=== PATIENT | female | born 1950 | race Caucasian/White ===

== ENCOUNTER 2020-03-27 11:40 | Outpatient (CLI) | payer MEDICARE ==
--- NOTE | 2020-03-27 13:01 | MMO ---
Bilateral MAMMO Bilat Screen [facility]. CLINICAL HISTORY: Patient is 69 years old and is seen for screening. The patient has no family history of breast cancer. The patient has no personal history of cancer. VIEWS: The views performed were: bilateral craniocaudal with tomosynthesis and bilateral mediolateral oblique with tomosynthesis. FILMS COMPARED: The present examination has been compared to prior imaging studies performed at [facility] on 11/12/2010, 02/13/2012, 02/16/2013 and 03/28/2014. This study has been interpreted with the assistance of computer-aided detection. MAMMOGRAM FINDINGS: The breasts are heterogeneously dense, which could obscure a lesion on mammography. There are no suspicious masses, suspicious calcifications, or new areas of architectural distortion. IMPRESSION: THERE IS NO MAMMOGRAPHIC EVIDENCE OF MALIGNANCY. A ROUTINE FOLLOW-UP MAMMOGRAM IN 1 YEAR IS RECOMMENDED. THE RESULTS OF THIS EXAM WERE SENT TO THE PATIENT. ACR BI-RADS Category 1 - Negative MAMMOGRAPHY NOTE: 1. A negative mammogram report should not delay a biopsy if a dominant of clinically suspicious mass is present. 2. Approximately 10% to 15% of breast cancers are not detected by mammography. 3. Adenosis and dense breasts may obscure an underlying neoplasm. Reported by: JAMAICA CHEUNG MD Electonically Signed: [id number]
== END 2020-03-27 11:41 | disposition home or self-care (01) ==
LOC: BICMAMMO 11:40
PROVIDERS: ATTEND Family Medicine
DX: Z12.31 Encounter for screening mammogram for malignant neoplasm of breast (principal)
CPT/HCPCS: 77063; 77067

== ENCOUNTER 2020-06-07 06:50 | Outpatient (CLI) | payer MEDICARE ==
[2020-06-07 15:50] LABS: #Eosinphils 0.2 10x3/uL (0.0-0.5); #Monocytes 0.5 10x3/uL (0.0-1.1); %Basophils 0.5 % (0.0-2.0); %Eosinophils 2.9 % (0.0-6.0); %Monocytes 8.5 % (0.0-10.0); Hemoglobin 14.9 g/dL (12.0-16.0); Mean Corpuscular HGB CONC 33.8 G/DL (32.0-36.0); Mean Corpuscular Hemoglobin 32.7 PG (27.0-33.0); Mean Corpuscular Volume 96.7 fl (80.0-100.0); Platelet Count 229 10x3/uL (130-400); RBC Distribution Width 12.8 % (11.5-14.5); Red Blood Cell (RBC) Count 4.56 10x6/uL (3.90-5.20); White Blood Cell (WBC) Count 6.1 10x3/uL (4.5-11.0)
[2020-06-07 15:52] LABS: #Neutrophils 3.4 10x3/uL (1.5-8.4); %Neutrophils 55.1 % (40.0-75.0)
[2020-06-07 16:05] LABS: Anion Gap 14 mmol/L (10-20); BUN (Urea Nitrogen) 16 mg/dL (9.8-20.1); Calc. Creatinine Clearance 0 mL/min (70-130); Calcium 9.7 mg/dL (7.8-10.44); Carbon Dioxide 30 mmol/L (23-31); Chloride 101 mmol/L (98-107); Glucose 90 mg/dL (80-115); Sodium 141 mmol/L (136-145)
[2020-06-07 19:04] LABS: Hemoglobin A1c 5.1 % (4.0-6.0)
[2020-06-08 00:19] LABS: SARS-CoV-2 MS2 Positive; SARS-CoV-2 N Gene Negative; SARS-CoV-2 S Gene Negative; SARS-CoV-2 by NAA Not Detected (NotDetected); SARS-CoV-2 orf1ab Negative
== END 2020-06-07 06:51 | disposition home or self-care (01) ==
LOC: LABBT 06:50
PROVIDERS: ATTEND Surgery
DX: Z01.818 Encounter for other preprocedural examination (principal); K63.89 Other specified diseases of intestine; Z20.828 Contact with and (suspected) exposure to other viral communicable diseases
CPT/HCPCS: 80048; 83036; 85025; U0003; 87635; 93005; 93010

== ENCOUNTER 2020-06-07 15:00 | Inpatient (IN) | payer MEDICARE ==
[2020-06-06 14:27] VITALS: BMI 22.1
[2020-06-13] MEDS ORDERED: Midazolam HCl 2 mg/2 ml Vial ONE ×2 (06:35→06:36)
[2020-06-13] MEDS ORDERED: Fentanyl 100 MCG/2 ML VIAL ONE ×3 (06:35→10:18)
[2020-06-13] MEDS ORDERED: Lidocaine 1% (PF) 30 ML VIAL ONE (06:36)
[2020-06-13] MEDS ORDERED: cefOXitin Sodium/Dextrose 2 GM/50 ML BAG ONE (06:46)
[2020-06-13] MEDS ORDERED: Sodium Chloride 0.9% 0 ML ONE (06:46)
[2020-06-13] MEDS ORDERED: Scopolamine 1.5 mg/72 hour Patch ONE (06:47)
[2020-06-13] MEDS ORDERED: Promethazine HCl 25 MG/ML VIAL IM PRN (09:17)
[2020-06-13] MEDS ORDERED: HYDROmorphone 2 MG/ML VIAL SLOW IVP PRN (09:17)
[2020-06-13] MEDS ORDERED: Promethazine HCl 25 MG/ML VIAL SLOW IVP PRN (09:17)
[2020-06-13] MEDS ORDERED: Ondansetron HCl/PF 4 MG/2 ML Vial IVP PRN (09:17)
[2020-06-13] MEDS ORDERED: Promethazine HCl 25 MG/ML VIAL ONE (10:19)
[2020-06-13] MEDS ORDERED: Rocuronium Bromide 10 MG/ML (10ML VIAL) ONE (10:43)
[2020-06-13] MEDS ORDERED: Lidocaine 1% PF 5 ML VIAL ONE (10:43)
[2020-06-13] MEDS ORDERED: PHENYLEPHRINE-NS 100 MCG/ML 10 ML SYRINGE ONE (10:43)
[2020-06-13] MEDS ORDERED: PROPOFOL 200 MG/20 ML VIAL ONE (10:43)
[2020-06-13] MEDS ORDERED: Dexamethasone 20 MG/5 ML VIAL ONE (10:43)
[2020-06-13] MEDS ORDERED: ePHEDrine 50 MG/ML VIAL ONE (10:43)
[2020-06-13] MEDS ORDERED: Bupivacaine HCl 0.5%/Epinephrine 1:200,000/PF 30 ml Vial ONE (10:43)
[2020-06-13] MEDS ORDERED: Glycopyrrolate 0.2 MG/ML 5 ML SYRINGE ONE ×2 (10:43)
[2020-06-13] MEDS ORDERED: Ondansetron PF 4 MG/2 ML Vial IVP PRN (14:31)
[2020-06-13] MEDS ORDERED: Fentanyl 100 MCG/2 ML VIAL SLOW IVP PRN ×2 (14:31)
[2020-06-13] MEDS: traMADol HCl 50 MG TAB PO PRN ×2 (15:07→21:20)
[2020-06-13] MEDS: cefOXitin Sodium/Dextrose,Iso 1 GM in Premix Bag 1 BAG IVPB SCH (15:11)
[2020-06-13] MEDS: D5 1/2 NS w/20 mEq KCL 1,000 ML IV SCH (17:49)
[2020-06-13] MEDS: Flecainide 50 MG TAB PO SCH (21:19)
[2020-06-13] MEDS: Enoxaparin Sodium 40 MG/0.4 ML SYRINGE SC SCH (21:19)
[2020-06-13] MEDS: Famotidine 20 MG TAB PO SCH (21:20)
[2020-06-13] MEDS: Famotidine/PF 20 mg/2ml Vial SLOW IVP SCH (22:33)
[2020-06-14] MEDS: D5 1/2 NS w/20 mEq KCL 1,000 ML IV SCH ×3 (00:47→17:24)
[2020-06-14] MEDS: cefOXitin Sodium/Dextrose,Iso 1 GM in Premix Bag 1 BAG IVPB SCH (00:47)
[2020-06-14] MEDS: traMADol HCl 50 MG TAB PO PRN ×2 (02:20→10:01)
[2020-06-14 06:10] LABS: #Lymphocytes 1.7 thou/uL (1.20-3.40); #Neutrophils 7.4 thou/uL (1.40-6.50); %Basophils 0.1 % (0.0-1.0); %Eosinophils 0.1 % (0.0-10.0); %Lymphocytes 16.3 % (21.0-51.0); %Monocytes 10.2 % (0.0-10.0); %Neutrophils 73.2 % (42.0-75.0); Hemoglobin 13.2 g/dL (12.0-16.0); Mean Corpuscular HGB CONC 33.2 g/dL (32.0-36.0); Mean Corpuscular Hemoglobin 32.7 pg (27.0-31.0); Mean Corpuscular Volume 98.5 fL (78.0-98.0); Mean Platelet Volume 7.7 fL (7.4-10.4); Platelet Count 202 thou/uL (130-400); Red Blood Cell (RBC) Count 4.02 mill/uL (4.20-5.40); White Blood Cell (WBC) Count 10.1 thou/uL (4.8-10.8)
[2020-06-14 06:30] LABS: Anion Gap 12 mmol/L (10-20); BUN (Urea Nitrogen) 11 mg/dL (9.8-20.1); Calc. Creatinine Clearance 68 mL/min (70-130); Calcium 8.5 mg/dL (7.8-10.44); Carbon Dioxide 27 mmol/L (23-31); Chloride 101 mmol/L (98-107); Glucose 100 mg/dL (80-115); Potassium 3.8 mmol/L (3.5-5.1); Sodium 136 mmol/L (136-145)
--- NOTE | 2020-06-14 07:20 | PDOC.GSPN ---
Surgery Progress Note: Subj - Subjective Patient reports: no new complaints, pain well controlled, tolerating liquids wel l, no bowel movement Narrative: Patient is post op day 1 from R colon resection due to unresectable polyp. She states that she feels well and only experiences pain when she contracts her abdominal muscles. There is moderate pain with deep inspiration. She is beginning to develop some "gas pain", but other than that feels well. Tolerating her liquids well. She denies N/V, lightheadedness, chest pain, shortness of breath, or stomach cramps. Surgery Progress Note: Obj - Vital signs Vital signs: Vital Signs - Most Recent Temp Pulse Resp BP Pulse Ox 98.2 F 58 L 16 159/86 H 92 L 06/14/20 03:10 06/14/20 03:10 06/14/20 03:10 06/14/20 03:10 06/14/20 03:10 - Physical Exam General: no distress, well developed, well nourished Cardiovascular: regular rate and rhythm Respiratory: clear to auscultation, normal respiratory effort, breath sounds present Abdomen: soft, nondistended, positive bowel sounds, appropriately tender Musculoskeletal: normal gait, normal posture Wound: dressing clean,dry,intact, healing well Surgery Progress Note: Results - Labs Result Diagrams: 06/14/20 05:42 06/14/20 05:42 Lab results: Laboratory Results - last 12 hr 06/14/20 06/14/20 05:42 05:42 WBC 10.1 RBC 4.02 L Hgb 13.2 Hct 39.6 MCV 98.5 H MCH 32.7 H MCHC 33.2 RDW 12.0 Plt Count 202 MPV 7.7 Neutrophils % 73.2 Lymphocytes % 16.3 L Monocytes % 10.2 H Eosinophils % 0.1 Basophils % 0.1 Neutrophils # 7.4 H Lymphocytes # 1.7 Monocytes # 1.0 H Eosinophils # 0.0 Basophils # 0.0 Sodium 136 Potassium 3.8 Chloride 101 Carbon Dioxide 27 Anion Gap 12 BUN 11 Creatinine 0.82 Estimated GFR (MDRD) 69 Glucose 100 Calcium 8.5 Surgery Progress Note: A/P - Plan Plan: R colectomy secondary to unresectable polyp Contniue to encourage ambulation. Tolerating clear liquids well, transition to full liquids if she continues to tolerate the clears. Patient has not passed gas, but says that she is beginning to feel gas pressure, so continue to monitor for flatus. If she continues to recover well consider d/c tomorrow morning.
[2020-06-14] MEDS: Flecainide 50 MG TAB PO SCH ×2 (08:14→20:40)
[2020-06-14] MEDS: Lisinopril/Hydrochlorothiazide 20/25 mg Tablet PO SCH (08:14)
[2020-06-14] MEDS: Famotidine 20 MG TAB PO SCH ×2 (08:14→20:40)
[2020-06-14] MEDS: PARoxetine 20 MG TAB PO SCH (08:15)
[2020-06-14] MEDS: Famotidine/PF 20 mg/2ml Vial SLOW IVP SCH ×2 (08:30→20:40)
--- NOTE | 2020-06-14 08:49 | OP ---
DATE OF PROCEDURE: 06/13/2020 PREOPERATIVE DIAGNOSIS: Ascending colon mass. POSTOPERATIVE DIAGNOSIS: Ascending colon mass. PROCEDURE PERFORMED: Laparoscopic right colectomy. ANESTHESIA: General. ESTIMATED BLOOD LOSS: Minimal. COMPLICATIONS: None. FINDINGS: The polyp was in the specimen. DESCRIPTION OF PROCEDURE: The patient was taken to the operating room and laid supine on the table. After general anesthetic was obtained, the abdomen was prepped and draped in a sterile fashion. A Franco had been placed. Left subcostal 5-mm Optiview trocar placed in usual fashion, high-flow pneumoperitoneum was obtained. A 5-mm ports were placed in the left abdomen and suprapubic, 5 mm incision and port was placed at the umbilicus. The right colon was mobilized along the peritoneal reflection. Hepatic flexure was mobilized in the same way. The colon was flipped over to the medial side and the ileocolic vessels were skeletonized at their base. The laparoscopic LigaSure was used to take the ileocolic vessels at their base without bleeding. Right colon was then mobilized posteriorly past the hepatic flexure to the proximal transverse colon. The blue tattooed area was in the cecum. Laparoscopic stapler was fired across the terminal ileum. A reload was fired across the proximal transverse colon. The small bowel and colon were able to be brought up against each other in an isoperistaltic fashion without tension. Subcostal incision was made overlying this area and the Allen wound retractor was placed. An anastomosis was performed using MARQUIS 75 and the common enterotomy was closed using 2-0 Vicryl suture. No ischemia to the staple line or closure. The specimen was taken out from this incision. There was no bleeding in the abdomen. There was no tension on the anastomosis. All instrument counts, needle counts, and lap counts were correct. The 12-mm port site for the stapler in the left subcostal area was closed using GraNee needle Vicryl tie. The subcostal incision was closed with the anterior and posterior fascia using PDS. The wounds were all irrigated and closed using 3-0 Vicryl, 4-0 Monocryl, and Dermabond. The patient was sent to Recovery in stable condition. All instrument counts, needle counts, and lap counts were correct. Job ID: [id number]
[2020-06-14] MEDS ORDERED: HYDROcodone/Acetaminophen 7.5/325 mg Tablet PO PRN (09:23)
[2020-06-14] MEDS: Acetaminophen 325 MG TAB PO PRN ×2 (10:01→17:25)
[2020-06-14] MEDS: hydrALAZINE 20 MG/ML VIAL SLOW IVP PRN ×2 (11:28→20:49)
--- NOTE | 2020-06-14 14:00 | PRG ---
DATE OF SERVICE: 06/14/2020 SUBJECTIVE: Postop day #1, right colectomy, laparoscopic. Ms. Chowdary has no complaints. She tolerated the clear liquids. She has ambulated once in the sanders. OBJECTIVE: VITAL SIGNS: She is afebrile. Vital signs are stable. ABDOMEN: Her abdomen is soft and appropriately tender. The wounds are healing well. LABORATORY DATA: Hemoglobin is stable at 13 postop day #1, creatinine 0.82. ASSESSMENT: Postoperative day #1, right colectomy. PLAN: Advance to full liquids tonight if no nausea. Job ID: [id number]
[2020-06-14] MEDS: Promethazine HCl 25 MG/ML VIAL IM PRN (17:24)
[2020-06-14] MEDS: Enoxaparin Sodium 40 MG/0.4 ML SYRINGE SC SCH (20:40)
[2020-06-15] MEDS: hydrALAZINE 20 MG/ML VIAL SLOW IVP PRN ×2 (01:09→20:21)
[2020-06-15] MEDS: D5 1/2 NS w/20 mEq KCL 1,000 ML IV SCH ×2 (03:53→17:15)
[2020-06-15] MEDS ORDERED: Ketorolac Tromethamine 30 MG/ML VIAL IVP SCH (09:00)
--- NOTE | 2020-06-15 09:16 | PRG ---
DATE OF SERVICE: 06/15/2020 Ms. Chowdary had nausea last night, and she vomited. She feels better this morning. She is complaining of headache. She is afebrile. Vital signs are stable. Her abdomen is soft. It is mildly distended, but she has some bowel sounds. Her wounds are healing well without evidence of infection. ASSESSMENT: Postop day 2, laparoscopic right colectomy. PLAN: I do not think she is ready for discharge yet. She needs to be able to tolerate the liquids better. She is complaining of this headache. We will try Snow, discontinue the fentanyl, also give her a dose of Toradol. Possible discharge home later today. Job ID: [id number]
[2020-06-15] MEDS: Promethazine HCl 25 MG/ML VIAL IM PRN (09:30)
[2020-06-15] MEDS: Lisinopril/Hydrochlorothiazide 20/25 mg Tablet PO SCH (09:31)
[2020-06-15] MEDS: Famotidine 20 MG TAB PO SCH ×2 (09:31→20:19)
[2020-06-15] MEDS: Flecainide 50 MG TAB PO SCH ×2 (09:31→20:19)
[2020-06-15] MEDS: Famotidine/PF 20 mg/2ml Vial SLOW IVP SCH ×2 (09:32→20:20)
[2020-06-15] MEDS: PARoxetine 20 MG TAB PO SCH (09:41)
[2020-06-15] MEDS ORDERED: Ibuprofen 800 MG TAB PO PRN (13:00)
[2020-06-15] MEDS: Enoxaparin Sodium 40 MG/0.4 ML SYRINGE SC SCH (20:20)
[2020-06-15] MEDS: Acetaminophen 325 MG TAB PO PRN (23:24)
[2020-06-16] MEDS: hydrALAZINE 20 MG/ML VIAL SLOW IVP PRN ×2 (00:08→13:14)
[2020-06-16] MEDS: traMADol HCl 50 MG TAB PO PRN (00:56)
[2020-06-16] MEDS: D5 1/2 NS w/20 mEq KCL 1,000 ML IV SCH (00:56)
[2020-06-16] MEDS: PARoxetine 20 MG TAB PO SCH (09:14)
[2020-06-16] MEDS: Lisinopril/Hydrochlorothiazide 20/25 mg Tablet PO SCH (09:15)
[2020-06-16] MEDS: Famotidine 20 MG TAB PO SCH (09:16)
[2020-06-16] MEDS: Flecainide 50 MG TAB PO SCH (09:17)
[2020-06-16] MEDS: Famotidine/PF 20 mg/2ml Vial SLOW IVP SCH (09:18)
[2020-06-16] MEDS: Promethazine HCl 25 MG/ML VIAL IM PRN (09:21)
[2020-06-16 15:56] VITALS: BP 182/82; TEMP 98.2
--- NOTE | 2020-06-20 17:29 | PQF ---
CLINICAL DOCUMENTATION CLARIFICATION FORM: Dear : Tramaine Weiner MD Date / Time: 06/20/2020 Please exercise your independent, professional judgment in responding to the clarification form. Clinical indicators are provided on the bottom of this form for your review Please check appropriate box(s): [ ] Paroxysmal Atrial Fibrillation [ ] Permanent Atrial Fibrillation [ ] Persistent Atrial Fibrillation [ ] Long Standing Persistent Atrial Fibrillation [ ] Chronic Atrial Fibrillation [ ] Atrial Fibrillation/Atrial flutter [ ] Atrial Flutter [ ] Post-Operative Complication - Atrial Fibrillation [ ] Paroxysmal Atrial Fibrillation [ ] Persistent Atrial Fibrillation [ ] Other Diagnosis (Please specify if any) [ X ] Unable to Determine In addition, please specify: Present on Admission (POA): [ ] Yes [ ] No [ ] Unable to Determine Physician Signature: Date/Time: For continuity of documentation, please document condition throughout progress notes and discharge summary. Thank You. To be completed by CDI/Coding staff for physician review: Present Clinical Indicators - Signs / Symptoms / Labs Results and Location in Medical Record [x] Abnormal EKG Miscellanous on 06/13 [x] Paroxysmal atrial fibrillation-she had been doing well, but she had more spells in the last month. Continue flecainide, metoprolol Miscellanous on 06/13 [ ] Palpitations Present Risk Factors Results and Location in Medical Record [x] Hypertensive heart disease Hx of Afib Physicians office H&P on 06/13 [ ] Coronary heart disease [ ] CABG this admission Present Treatments Results and Location in Medical Record [ ] Rate control (anti-arrhythmic drug therapy: beta blockers, calcium channel blockers, Digoxin, Amiodarone) [x] Home medications: Xarelto 20 mg PO Physicians office H&P on 06/13 [x] Metoprolol 12.5mg, flecainide 100mg po Resumed at home on 06/06 CDS/Gastroenterology Physician Signature: AAS Phone #: Date/Time: 06/20/2020 This is a permanent part of the Medical Record [facility]
== END 2020-06-16 17:22 | disposition home or self-care (01) | DRG 331 ==
LOC: SURG A 06-13 06:01 → SURG B 06-13 12:56
PROVIDERS: ADMIT Surgery; ATTEND Surgery
PROC: 0DTF4ZZ Resection of Right Large Intestine, Percutaneous Endoscopic Approach (ICD-10-PCS; principal; 2020-06-13)
PROC: 3E0T3BZ Introduction of Anesthetic Agent into Peripheral Nerves and Plexi, Percutaneous Approach (ICD-10-PCS; 2020-06-13)
DX: D12.6 Benign neoplasm of colon, unspecified (principal); I10 Essential (primary) hypertension; F41.8 Other specified anxiety disorders; E89.0 Postprocedural hypothyroidism; F17.200 Nicotine dependence, unspecified, uncomplicated; Z79.899 Other long term (current) drug therapy; Z79.01 Long term (current) use of anticoagulants; Z90.89 Acquired absence of other organs; Z98.49 Cataract extraction status, unspecified eye; Z88.1 Allergy status to other antibiotic agents; F17.210 Nicotine dependence, cigarettes, uncomplicated; E78.2 Mixed hyperlipidemia; I49.5 Sick sinus syndrome; I48.0 Paroxysmal atrial fibrillation
CPT/HCPCS: 36415; 36416; 80048; 85025; 88309; J0360; J0694; J1100; J1650; J1885; J2001; J2250; J2405; J2550; J2704; J3010; J3480; J3490

== ENCOUNTER 2021-05-01 11:54 | Outpatient (CLI) | payer MEDICARE | END 2021-05-01 11:55 | disposition home or self-care (01) | LOC: BICMAMMO 11:54 | PROVIDERS: ATTEND Family Medicine | DX: Z12.31 Encounter for screening mammogram for malignant neoplasm of breast (principal) | CPT/HCPCS: 77063; 77067 ==

== ENCOUNTER 2024-06-24 13:12 | Outpatient (CLI) | payer MEDICARE, OTHER | END 2024-06-24 13:13 | disposition home or self-care (01) | LOC: SCSRAD 13:12 | PROVIDERS: ATTEND Student in an Organized Health Care Education/Training Program | DX: M25.551 Pain in right hip (principal); Z91.81 History of falling | CPT/HCPCS: 71046 ==